=== PATIENT | male | born 1980 | race Caucasian/White ===

== ENCOUNTER 2024-08-11 11:52 | Emergency (ER) | payer OTHER, SELFPAY ==
[2024-08-11 11:56] VITALS: BP 113/77
[2024-08-11] MEDS: MOTRIN 800 MG PO (13:57)
--- NOTE | 2024-08-11 15:06 | ED.GENMED ---
History of Present Illness
General
Chief Complaint: Back Pain
Source: patient
Exam Limitations: none
Time Seen by Provider: 08/11/24 13:02
Nursing documentation reviewed up to this point in time: agreed with
History of Present Illness
History of Present Illness:
PT IS A 44 Y/O M with h/o HLD
Course
Orders/Labs/Results
Orders:
Orders
08/11/24 13:41
Ibuprofen [Motrin] 800 mg PO NOW STA
Lumbar Spine Complete, 4 View [CR Lumbar Spine Comp Min 4 Vw*] Urgent
Comment:
Reason For Exam: lower back pain
Vital Signs
Initial and Last Documented VS:
Initial Vital Signs
Temp Pulse Resp BP Pulse Ox
36.4 C 75 20 113/77 99
08/11/24 11:56 08/11/24 11:56 08/11/24 11:56 08/11/24 11:56 08/11/24 11:56
Last Documented Vital Signs
Temp Pulse Resp BP Pulse Ox
36.9 C 70 16 120/72 97
08/11/24 15:55 08/11/24 15:55 08/11/24 15:55 08/11/24 15:55 08/11/24 15:55
ED Attending Note
-
Portions of this chart may have been created with voice recognition software.� Occasional wrong word or��sound alike� substitutions may have occurred due to the inherent limitations of voice recognition software.
Discharge Plan
Departure
Patient Disposition: Home (Routine Discharge)
Date of Disposition: 08/11/24
Time of Disposition: 15:30
Patient with high blood pressure during this ER visit?: No
Condition: Fair
Covid-19: Not Applicable
Discharge Problem:
Low back pain
Instructions: Low Back Pain (DC)
Prescriptions:
New
cyclobenzaprine 10 mg tablet
10 mg PO HS PRN (Reason: muscle spasm) Qty: 12 0RF
Referrals:
Gabriela Lamar, DO [Family Provider] - Follow up in 2-3 days
Activity Restrictions/Additional Instructions:
YOUR BACK PAIN IS LIKELY FROM PULLED MUSCLES AND MUSCLE SPASM
TRY IBUPROFEN 800 MG 3 TIMES A DAY WITH FOOD FOR 3-5 DYAS FOR INFLAMMATION
FOR MUSCLE SPASM TAKE 10 MG FLEXERIL AT NIGHT NEEDED
THIS MAY MAKE YOU TIRED
RETURN FOR: LEG WEAKNESS, NUMBNESS, TINGLING, INCONTINENCE, FEVER, INABILITY TO WALK ETC
OTHERWISE SEE YOUR DOCTOR
Interventions
Interventions:
*Risk Screen - Suicide Last Done: 08/11/24 11:56
*General Assessment Last Done: 08/11/24 11:56
*Neglect/Abuse Screening Last Done: 08/11/24 15:55
*ED- Fall Risk Assessment Last Done: 08/11/24 15:55
*ED COVID-19 Vaccine History Last Done: 08/11/24 15:55
*Nursing Disposition Last Done: 08/11/24 15:59
ED-Musculoskeletal Assessment Last Done: 08/11/24 15:55
Discharge Date and Time
Discharge Date/Time: 08/11/24 16:00
Print Language: [id number]
[2024-08-11 15:55] VITALS: BP 120/72; BMI 24.4
== END 2024-08-11 16:00 | disposition home or self-care (01) ==
LOC: EMR 11:52
PROVIDERS: EMERGENCY PHYSICIAN Student in an Organized Health Care Education/Training Program; FAMILY PHYSICIAN Family Medicine
DX: M54.50 Low back pain, unspecified (principal); E78.5 Hyperlipidemia, unspecified
CPT/HCPCS: 99283; 72110

== ENCOUNTER 2025-02-22 06:20 | Day surgery (SDC) | payer OTHER, SELFPAY | END 2025-02-22 16:19 | disposition home or self-care (01) | LOC: GI 06:20 | PROVIDERS: ATTENDING PHYSICIAN Internal Medicine Gastroenterology | DX: Z12.11 Encounter for screening for malignant neoplasm of colon (principal); Z83.719 Family history of colon polyps, unspecified; K64.8 Other hemorrhoids | CPT/HCPCS: G0105 ==